=== PATIENT | female | born 1945 | race African-American/Black ===

== ENCOUNTER 2024-06-22 22:15 | Emergency (ER) | payer OTHER, MEDICAID ==
[~2024-06-22] VITALS: Ht 172.7 cm; Wt 125.0 kg
[2024-06-22 22:16] VITALS: BP 68/26; PULSE 36; RESP 0; TEMP 97; O2SAT 90
[2024-06-22] MEDS ORDERED: SODIUM BICARBONATE 8.4% 50MEQ/50ML SYR IV ONE ×2 (22:21→22:35)
[2024-06-22] MEDS ORDERED: EPINEPHRINE 0.1MG/ML (1:10,000) 10ML SYR ONE (22:33)
== END 2024-06-22 22:45 ==
LOC: ER 22:15
DX: I46.9 Cardiac arrest, cause unspecified (principal); I49.01 Ventricular fibrillation; C90.00 Multiple myeloma not having achieved remission
CPT/HCPCS: 36556; 31500; 99285; J3490 ×2